=== PATIENT | female | born 1945 | race Caucasian/White ===

== ENCOUNTER 2016-12-04 12:30 | Emergency (ER) | payer OTHER ==
--- NOTE | ~2016-12-04 | CR72 ---
[facility] A Service of [facility] & [facility] RADIOLOGY TEXT RESULTS PATIENT: ZULY CREWS LOCATION: [facility] : 41 UNIT #: [id number] AGE: [address]: Dante Brock MD SEX: F ORDER DR: [id number] [facility] [address] [place], [place] [address] [id number] MR#: [id number] Acc #: [id number] NAME: ZULY CREWS : 1945 SEX: F STUDY DATE/TIME: 12/04/2016 13:28 UNIT: [facility] ROOM: STUDY DESCRIPTION: CR Chest Single View Portable Attending Physician: Dante Brock M.D. Ordering Physician: Dante Brock M.D. Primary Care Physician: Candace Keene M.D. MEDICAL IMAGING REPORT This report is preliminary unless electronic signature is present EXAM Portable chest INDICATIONS Shortness of breath today. No comparisons. FINDINGS Low-volume inspiration. There is consolidation or atelectasis in both lung bases. Heart size normal. Atherosclerotic calcification of the aorta. Degenerative changes of the shoulders. IMPRESSION Low-volume inspiration with atelectasis or consolidation in both lung bases. Dictated by... Shen Bucio M.D. THIS IS AN ELECTRONICALLY VERIFIED REPORT Shen Bucio M.D. at 12/05/2016 2:21 PM DAO/meek TD: 12/05/2016 02:55 JOB #: [id number] MEDICAL IMAGING REPORT Page 1 of 1 COPY
--- NOTE | ~2016-12-04 | EKG ---
PATIENT: ZULY CREWS UNIT #: [id number] Ventricular Rate: 65 BPM Atrial Rate: 65 BPM P-R Interval: 180 ms QRS Duration: 86 ms Q-T Interval: 414 ms QTC Calculation(Bezet): 430 ms P [place]: 36 degrees Calculated R [place]: -6 degrees Calculated T [place]: 20 degrees Diagnosis Line: Normal sinus rhythm Diagnosis Line: Normal ECG Diagnosis Line: No previous ECGs available Diagnosis Line: Confirmed by RAJEEV WATKINS MD ([id number]) on 12/05/2016 Diagnosis Line: 5:50:46 AM INTERPRETING MD: JUNE VILLARREAL
[2016-12-04 13:32] LABS: BASOPHIL# 0.1 X10e3 (0-0.3); BASOPHIL% 1.1 % (0-2.5); EOSINOPHIL# 0.2 X10e3 (0-0.7); EOSINOPHIL% 3.4 % (0.0-7.0); HEMATOCRIT 36.7 % (35.0-45.0); HEMOGLOBIN 11.7 gm/dL (12.0-16.0); LYMPHOCYTE% 19.7 % (17.0-45.0); MEAN CELL VOLUME 93.9 FL (83-96); MEAN CORPUSCULAR HEMOGLOBIN 29.9 PG (28-34); MEAN CORPUSCULAR HGB CONC 31.8 g/dL (30-36); MONOCYTE# 0.3 X10e3 (0-1.0); NEUTROPHIL# 3.3 X10e3 (1.5-7.1); NEUTROPHIL% 68.8 % (40-75); PLATELET COUNT 180 X10e3 (140-420); RED BLOOD COUNT 3.91 X10e (3.90-5.30); RED CELL DISTRIBUTION WIDTH 15.1 % (11.0-15.5); WHITE BLOOD COUNT 4.8 X10e3 (4.0-10.5)
[2016-12-04 13:36] LABS: DIFF IND NO
[2016-12-04 13:37] LABS: POC - CKMB <1.0 ng/mL (0.0-7.9); POC - TROPONIN <0.05 ng/mL (<=0.05)
[2016-12-04 13:56] LABS: ALBUMIN SERUM 3.8 g/dL (3.5-5.0); BILIRUBIN, DIRECT 0.1 mg/dL (0.0-0.2); BILIRUBIN,INDIRECT 0.5 mg/dL (0.0-0.9); BILIRUBIN,TOTAL 0.6 mg/dL (0.2-2.0); CALCIUM SERUM 9.5 mg/dL (8.4-10.2); CREATININE SERUM 0.6 mg/dL (0.6-1.4); GLOM FILT RATE Estimated 90.4 mL/min (>60); POTASSIUM 4.2 mmol/L (3.5-5.1); PROTEIN TOTAL SERUM 6.7 g/dL (6.0-8.3)
[2016-12-04 15:42] LABS: URINE SOURCE CLEAN CATCH
[2016-12-04 15:51] LABS: URINE APPEARANCE CLEAR; URINE BILIRUBIN NEG (NEG); URINE BLOOD NEG (NEG); URINE COLOR YELLOW; URINE GLUCOSE NEG (NEG); URINE KETONE NEG (NEG); URINE LEUKOCYTE ESTERASE NEG (NEG); URINE NITRATE NEG (NEG); URINE PROTEIN NEG (NEG); URINE SPECIFIC GRAVITY 1.019 (1.003-1.035)
[2016-12-04 15:54] LABS: CULTURE INDICATED? NO
[2017-03-02] MEDS ORDERED: ADVAIR 250-501 EACH INH (14:07)
[2017-03-02] MEDS ORDERED: LO-DOSE ASPIRIN81 M1 PO (14:08)
[2017-03-02] MEDS ORDERED: ALBUTEROL2.5 MG/3 M INH (14:08)
[2017-03-02] MEDS ORDERED: LIPITOR20 MG PO (14:08)
[2017-03-02] MEDS ORDERED: DILTIAZEM 24HR180 MG PO (14:09)
[2017-03-02] MEDS ORDERED: CLINDAMYCIN HC300 MG PO (14:09)
[2017-03-02] MEDS ORDERED: CLOTRIMAZOLE/BE15 G1 TOP (14:09)
[2017-03-02] MEDS ORDERED: ISOSORBIDE MONO30 MG PO (14:11)
[2017-03-02] MEDS ORDERED: SINGULAIR PO (14:11)
[2017-03-02] MEDS ORDERED: IPRATR-ALBUTEROL3 ML INH (14:11)
[2017-03-02] MEDS ORDERED: PRINIVIL40 MG PO (14:11)
[2017-03-02] MEDS ORDERED: DITROPAN5 MG PO (14:12)
[2017-03-02] MEDS ORDERED: SYMBICORT INH (14:27)
[2017-03-02] MEDS ORDERED: PANTOPRAZOLE SO40 MG PO (14:27)
[2017-03-02] MEDS ORDERED: ALBUTEROL17 GM INH (14:28)
[2017-03-02] MEDS ORDERED: VITAMIN C1000 M2 PO (14:29)
[2017-03-02] MEDS ORDERED: VITAMIN D250000 UNIT PO (14:29)
[2017-03-02] MEDS ORDERED: NOVOLIN 70100 UNITS/ (14:32)
== END 2016-12-04 17:05 | disposition home or self-care (01) ==
LOC: CED 12:30
PROVIDERS: Emergency Medicine
DX: J44.1 Chronic obstructive pulmonary disease with (acute) exacerbation (principal); E11.9 Type 2 diabetes mellitus without complications; I10 Essential (primary) hypertension; Z87.891 Personal history of nicotine dependence
CPT/HCPCS: 36415; 71010; 80048; 80076; 81003; 82553; 82947; 83880; 84484; 85025; 93005; 94640; 99283

== ENCOUNTER 2016-12-27 18:48 | Inpatient (IN) | payer OTHER ==
--- NOTE | ~2016-12-27 | HP ---
Unit #: [id number] #: [id number] Patient: ZULY CREWS [id number] [address] [place], [place] [address] [id number] I MR#: [id number] NAME: ZULY CREWS ROOM: 57 Age: 71 Sex: F Admission Date: 12/27/2016 : 1945 Attending Physician: Jose A Mensah M.D. Primary Care Physician: Candace Keene M.D. HISTORY AND PHYSICAL CHIEF COMPLAINT Shortness of breath, pain between shoulder blades and the breast. DISCUSSION This is a 71-year-old female with a history of oxygen dependent COPD, hypertension, overactive bladder, GERD, chronic back pain on pain pump, diabetes borderline, history of heart murmur. She presented to the emergency room with the chief complaint of having shortness of breath and between shoulder blades. She says she took mini-nebulizer today with no improvement. She came to the ER. She was found to be in COPD. Chest x-ray shows bilateral basal infiltrate versus atelectasis. She was eventually admitted. She denies chest pain. She has been having also nausea but no vomiting. No abdominal pain, no diarrhea, no constipation, no loss of consciousness, no headache. PAST MEDICAL HISTORY 1. History of COPD, oxygen at home. 2. History of hypertension. 3. Overactive bladder. 4. History of GERD. 5. Chronic back pain on pain pump. 6. Diabetes, borderline. 7. History of heart murmur. PAST SURGICAL HISTORY 1. History of bilateral tympanoplasty. 2. History of right wrist surgery. 3. Pain pump placement. 4. Cholecystectomy. 5. Hysterectomy. 6. Back surgery x3 in the past. SOCIAL HISTORY She used to smoke 1-2 packs daily since age 9. She quit just three months ago. Denies alcohol. Denies illicit drug use. MEDICATION FROM HOME 1. Symbicort 160/4.5 one puff daily. 2. Ventolin one puff twice a day p.r.n. 3. Prinivil 40 mg daily. 4. Singulair 10 mg daily. 5. Naprosyn 500 twice daily. 6. Zofran 4 mg q.8 hour p.r.n. 7. Ditropan 5 mg twice daily. Unit #: [id number] #: [id number] Patient: ZULY CREWS 8. Advair 250/50 one puff twice daily. 9. Albuterol via nebulizer q 6 hours p.r.n. 10. Amlodipine 10 mg daily. 11. Aspirin 81 mg daily. 12. Ipratropium 1 unit via nebulizer q.6 hours p.r.n. ALLERGIES She is allergic to penicillin, sulfa, codeine, tetracycline, Phenergan, glimepiride, latex. FAMILY HISTORY Noncontributory. REVIEW OF SYSTEMS Other review of systems negative except for history of presenting illness. PHYSICAL EXAMINATION GENERAL: Elderly female, lying in the bed comfortably, currently not in any distress. She is alert, awake, oriented x3, comfortable, not in any distress. VITAL SIGNS: Her current vitals are following: Temperature 98.2, heart rate 111, respiratory rate 22, blood pressure 147/52, oxygen 97%. HEENT: Pupils are equal, react to light and accommodation. Head is normocephalic, atraumatic. NECK: Supple. No JVD. HEART: S1, S2, regular rate and rhythm. 2/6 systolic murmur. LUNGS: Poor air entry bilaterally. ABDOMEN: Soft, nontender, nondistended, obese. No guarding. No rigidity. EXTREMITIES: To inspection normal. No cyanosis, no clubbing, no edema. NEUROLOGIC: No focal neurologic deficit. SKIN: Warm and dry, no rash. PSYCH: Normal mood and affect. DIAGNOSTIC STUDIES LABORATORY STUDIES: BNP 66. CBC - white count 6, hemoglobin 11, hematocrit 35, platelets 147, INR 1.1. Sodium 138, potassium 3.8, chloride 103, glucose 160, BUN 17, creatinine 0.9. LFT within normal limits. Troponin less than 0.05. IMAGING STUDIES: Chest x-ray shows bilateral basilar atelectasis versus infiltrate. CARDIOLOGY STUDIES: EKG shows sinus tachycardia. ASSESSMENT AND PLAN 1. Acute exacerbation of COPD, oxygen dependent at home. Will start the patient on IV steroids, DuoNeb, Mucinex, and continue Singulair. 2. Bilateral basilar infiltrate versus atelectasis, started IV Levaquin. 3. Hypertensin, currently controlled. Continue home medication of Norvasc and lisinopril. 4. Overactive bladder, continue Ditropan. 5. History of chronic nausea and Zofran. 6. GERD. For GI prophylaxis will place the patient on Protonix 40 p.o. daily. 7. Chronic back pain. She is on the pump. 8. History of diabetes. She says that she is on a diet. Place on diabetic diet. Placed on sliding scale while she is on steroids. Unit #: [id number] #: [id number] Patient: ZULY CREWS 9. DVT prophylaxis. Will place the patient on Lovenox. Dictated by Richy Hermosillo/danis TD: 12/28/2016 05:42 JOB #: [id number] HISTORY AND PHYSICAL Page 1 of 1 X X HISTORY AND PHYSICAL
--- NOTE | ~2016-12-27 | DS ---
Unit #: [id number] #: [id number] Patient: ZULY CREWS [id number] [place] [id number] [place] [id number] I MR#: [id number] NAME: ZULY CREWS ROOM: 577 Age: 71 Sex: F Admission Date: 12/27/2016 : 1945 Discharge Date: 01/01/2017 Attending Physician: Liam Mcclain M.D. Primary Care Physician: Candace Keene M.D. DISCHARGE SUMMARY DIAGNOSIS ON ADMISSION Acute exacerbation of chronic obstructive pulmonary disease, pneumonia. DIAGNOSES ON DISCHARGE 1. Acute exacerbation of chronic obstructive pulmonary disease, improved. 2. Pneumonia. 3. Chronic respiratory failure, patient on 4 L of home O2. 4. Dysphagia. 5. Distal esophageal stricture, status post dilatation. 6. Hypertension. 7. Overactive bladder. 8. Gastroesophageal reflux disease. 9. Chronic low back pain on pain pump. 10. Type 2 diabetes mellitus. 11. Erosive gastritis. CONSULTATION 1. Dr. Aguirre - Pulmonary. 2. Dr. Jose A Gifford - GI consultation. LABS AND PROCEDURES DONE The patient had an EGD done which revealed distal esophageal ring which was obstructing and it was dilated. The patient has classic Radames erosions with a large hiatal hernia present. The patient also has prepyloric antral corrosive gastritis. The patient had a bronchoscopy done which did not reveal any endobronchial lesions. There were thick mucoid secretions in both lungs which were therapeutically suctioned. The patient's creatinine is 0.7, sodium 138, potassium is 4.9. WBC 7.1, hemoglobin 11.0, platelet count is 182. ASSESSMENT AND PLAN 71-year-old patient presented to [facility] with shortness of air. Details are as per admission H and P. Acute exacerbation of chronic obstructive pulmonary disease: The patient was treated with IV Solu-Medrol. The patient responded well to treatment is feeling much better. Pneumonia: The patient was treated with IV antibiotics and is feeling Unit #: [id number] #: [id number] Patient: ZULY CREWS much better and wants to go home today. Dysphagia: The patient has complained of dysphagia and was seen by Dr. Jose A Gifford in consultation. The patient had an EGD done which revealed distal esophageal ring which was dilated. The patient is feeling much better. Today, patient is comfortable and wants to go home. DISCHARGE MEDICATIONS Medications on discharge: 1. Albuterol mini neb treatment q.6 hours p.r.n. 2. Ventolin inhaler, two puffs q.4 hours p.r.n. shortness of air. 3. Symbicort 160/4.5 two puffs daily. 4. Atrovent q.6 hours p.r.n. 5. Zofran 4 mg p.o. q.4 hours p.r.n. 6. Norvasc 10 mg p.o. daily. 7. Ditropan 5 mg p.o. b.i.d. 8. Lisinopril 40 mg p.o. daily. 9. Singulair 10 mg p.o. daily. 10. Enteric coated aspirin 81 mg p.o. daily. 11. Tylenol 650 mg p.o. q.4 hours p.r.n. pain. 12. Prednisone 20 mg, two p.o. daily into five days and then one p.o. daily into five days. 13. Levaquin 500 mg p.o. daily into five days. FOLLOWUP 1. Patient is advised to follow up with primary care physician in one week and have CBC and BMP done. 2. Patient is advised to follow up with Dr. Aguirre as recommended. 3. We will arrange home health regarding home safety assessment. 4. Patient advised to follow up with Dr. Jose A Gifford as recommended on March 03 at 10:30 a.m. and should be NPO after midnight for a repeat EGD and possible dilatation. Dictated by... Richy Carolina TD: 01/01/2017 10:46 JOB #: [id number] DISCHARGE SUMMARY Page 1 of 1 X Liam Mcclain MD DISCHARGE SUMMARY
--- NOTE | ~2016-12-27 | CT57 ---
[facility] A Service of [facility] & [facility] RADIOLOGY TEXT RESULTS PATIENT: ZULY CREWS LOCATION: [facility] 577-01 : 43 UNIT #: [id number] AGE: [address]: Liam Mcclain MD SEX: F ORDER DR: [id number] [facility] [address] [place], [place] [address] [id number] I MR#: [id number] Acc #: [id number] NAME: ZULY CREWS : 1945 SEX: F STUDY DATE/TIME: 12/29/2016 14:42 UNIT: [facility] ROOM: [facility] STUDY DESCRIPTION: CT Chest Wo Cont Attending Physician: Liam Mcclain M.D. Ordering Physician: Jes Aguirre M.D. Primary Care Physician: Candace Keene M.D. MEDICAL IMAGING REPORT This report is preliminary unless electronic signature is present EXAM CT chest without contrast. HISTORY Shortness of air for 2 years. Cough today. TECHNIQUE This CT exam was performed with one or more of the following radiation dose reduction techniques: automatic exposure control, adjustment of mA and/or kV according to patient size, and iterative reconstruction. FINDINGS CT chest without contrast demonstrates an 8-mm rounded nodular density, partly containing air, in the proximal right lower lobe bronchus, immediately beyond the bifurcation of the right mainstem bronchus. This appears to be adherent to the bronchial wall. This could be mucus versus neoplasm. Consider either bronchoscopic correlation or short-term followup CT. Moderately dense atelectasis in the posterior and inferior lower lobes bilaterally, greater on the right. There is also mild atelectasis in the right middle lobe and minimal atelectasis in the posterior lingula. Large hiatal hernia. No adenopathy. Normal caliber thoracic aorta. Tortuous distal descending thoracic aorta. Cholecystectomy. Partly visualized infrarenal abdominal aortic Wallstent. IMPRESSION 1. 8-mm mixed density nodular structure in the proximal right lower lobe bronchus immediately beyond the right mainstem bronchus bifurcation. This could be adherent mucus, as it contains a small amount of air. Neoplasm is not excluded, but considered less likely. Consider either bronchoscopy or short-term followup CT. 2. Moderately dense atelectasis in the posterior and inferior right lower STS. [facility] A Service of [facility] RADIOLOGY TEXT RESULTS PATIENT: ZULY CREWS LOCATION: [facility] 577-01 : [birth year] UNIT #: [id number] AGE: [address]: Liam Mcclain MD SEX: F ORDER DR: lobe and less extensive atelectasis in the posterior and inferior left lower lobe. 3. Large hiatal hernia. Dictated by... Pelon Wilde M.D. THIS IS AN ELECTRONICALLY VERIFIED REPORT Pelon Wilde M.D. at 12/29/2016 10:53 PM José Miguel TD: 12/29/2016 18:18 JOB #: [id number] MEDICAL IMAGING REPORT Page 1 of 1 COPY
--- NOTE | ~2016-12-27 | EKG ---
PATIENT: ZULY CREWS UNIT #: [id number] Ventricular Rate: 103 BPM Atrial Rate: 103 BPM P-R Interval: 152 ms QRS Duration: 82 ms Q-T Interval: 342 ms QTC Calculation(Bezet): 448 ms P [place]: 32 degrees Calculated R [place]: -17 degrees Calculated T [place]: 20 degrees Diagnosis Line: Sinus tachycardia Diagnosis Line: Poor R wave progression questionable lead position Diagnosis Line: or body habitus Diagnosis Line: Borderline ECG Diagnosis Line: When compared with ECG of 04-DEC-2016 13:40, Diagnosis Line: Vent. rate has increased BY 38 BPM Diagnosis Line: Confirmed by AMEENA NOEL MD ([id number]) on Diagnosis Line: 12/27/2016 10:25:36 PM INTERPRETING MD: JACKIE
--- NOTE | ~2016-12-27 | OR ---
Unit #: [id number] #: [id number] Patient: ZULY CREWS [id number] [address] [place], [place] [address] [id number] I MR#: [id number] NAME: ZULY CREWS ROOM: 57 Date of Procedure: 12/28/2016 Admission Date: 12/27/2016 Surgeon: JoseA Gifford M.D. : 1945 Attending Physician: Liam Mcclain M.D. Primary Care Physician: Candace Keene M.D. OPERATIVE REPORT ADDITIONAL ATTENDING PHYSICIAN Dr. Jose A Mensah. PREOPERATIVE DIAGNOSIS Dysphagia. PROCEDURES PERFORMED Upper gastrointestinal endoscopy and a dilation as well as upper gastrointestinal endoscopy and a biopsy. POSTOPERATIVE DIAGNOSES 1. The patient had distal esophageal ring, which was felt to be obstructing. It was dilated using an 18 to 20 mm TTS balloon. 2. Large hiatus hernia. 3. Classic Radames erosions. These are linear erosions within the hiatal hernia sac that can occasionally cause iron-deficiency anemia. 4. Prepyloric antral erosive gastritis. There were multiple erosions in the antral area. A biopsy was obtained from the antrum for CLOtest. 5. Rest of the examination up to third part of duodenum was normal. RECOMMENDATIONS The patient will be started on diet as tolerated and start on pantoprazole 40 mg p.o. q.a.m. SEDATION MAC. DESCRIPTION OF PROCEDURE Following detailed explanation of the potential risks and complications of an upper endoscopy, namely perforation, bleeding, and complication related to sedation, the patient was brought to GI lab and laid in the left lateral decubitus position. Lubricated tip of the Olympus video upper endoscope was passed through the bite block into the proximal esophagus under direct vision. The entire esophageal mucosa was examined. The patient was noted to have distal esophageal mucosal ring, which was felt to be obstructing. There being no esophagitis. In addition, a large hiatus hernia was noted. The scope was advanced into the gastric cavity. The patient also had classic Radames erosions. These are linear erosions within the hiatal hernia sac that can cause iron-deficiency anemia. The mucosa of the fundus, body, and antrum was examined. The patient was noted to have prepyloric antral erythema erosions indicating antral Unit #: [id number] #: [id number] Patient: DUPIN,ZULY gastritis. Pylorus was intubated with visualization of normal duodenal bulb and second and third part of duodenum. Upon withdrawal and retroflexion, incisura, cardia, and greater curve was examined and no additional findings were noted. The scope was then withdrawn in the distal esophagus. No additional findings were noted. Biopsies were obtained from the antrum for CLOtest. The scope was then withdrawn in the distal esophagus. An 18 to 20 mm TTS balloon was passed through the accessory channel of the scope and step-up dilation of the distal esophagus was done. Minimal bleeding was noted. The area was thoroughly washed with water. Good hemostasis was achieved. The scope was then withdrawn all the way up to pharynx. No additional findings were noted. The patient tolerated the procedure without any postprocedure complications. Dictated by... Richy Uriarte TD: 12/29/2016 16:03 JOB #: [id number] OPERATIVE REPORT Page 1 of 1 X Jose A Gifford MD X PROCEDURE OPERATIVE NOTE
--- NOTE | ~2016-12-27 | CR72 ---
[facility] A Service of [facility] & [facility] RADIOLOGY TEXT RESULTS PATIENT: ZULY CREWS LOCATION: [facility] 577-01 : 41 UNIT #: [id number] AGE: [address]: Liam Mcclian MD SEX: F ORDER DR: [id number] [facility] [address] [place] [address] [place], [place] [address] [id number] I MR#: [id number] Acc #: [id number] NAME: ZULY CREWS : 1945 SEX: F STUDY DATE/TIME: 12/27/2016 19:24 UNIT: [facility] ROOM: [facility] STUDY DESCRIPTION: CR Chest Single View Portable Attending Physician: Jose A Mensah M.D. Ordering Physician: Adrienne Toure M.D. Primary Care Physician: Candace Keene M.D. MEDICAL IMAGING REPORT This report is preliminary unless electronic signature is present EXAM Portable chest. HISTORY Shortness of air and chest pain for 1 month. FINDINGS Moderate bibasilar infiltrates or atelectasis have increased since 12/04/16. Low lung volumes. Cardiac and mediastinal contours are within normal limits. Moderate sized hiatal hernia. The mid and upper lungs are clear. Dictated by... Pelon Wilde M.D. THIS IS AN ELECTRONICALLY VERIFIED REPORT Pelon Wilde M.D. at 12/28/2016 5:27 PM JIM/carrie TD: 12/28/2016 00:19 JOB #: [id number] MEDICAL IMAGING REPORT Page 1 of 1 COPY
--- NOTE | ~2016-12-27 | CO ---
Unit #: [id number] #: [id number] Patient: ZULY CREWS [id number] [address] [address] [id number] I MR#: [id number] NAME: ZULY CREWS ROOM: [facility] Age: 71 Sex: F Admission Date: 12/27/2016 : 1945 Attending Physician: Liam Mcclain M.D. Primary Care Physician: Candace Keene M.D. CONSULTATION REPORT CHIEF COMPLAINT Shortness of breath and chest pain. HISTORY OF PRESENT ILLNESS A 71-year-old female with past medical history of COPD on oxygen, came in with a complaint of worse shortness of breath, increasing sputum production for last two to three days. Symptoms getting worse. Chest x-ray showed bilateral basal infiltrates. I am seeing her at the bedside. Denies any nausea, vomiting, diarrhea. PAST MEDICAL HISTORY 1. COPD. 2. Hypertension. 3. Overactive bladder. 4. Gastroesophageal reflux disease. 5. Heart murmur. PAST SURGICAL HISTORY 1. Wrist surgery. 2. Hysterectomy. 3. Cholecystectomy. SOCIAL HISTORY One to two packs smoker per day, quit three months ago. MEDICATIONS 1. Symbicort. 2. Ventolin. 3. Prinivil. 4. Singulair. 5. Naproxen. 6. Zofran. 7. Ditropan. 8. Advair. 9. Albuterol. 10. Amlodipine. 11. Aspirin. 12. Ipratropium. ALLERGIES Penicillin, sulfa, codeine, tetracycline, Phenergan, glimepiride, latex. PHYSICAL EXAMINATION VITAL SIGNS: Temperature 98, pulse 87, respirations 12, blood pressure Unit #: [id number] #: [id number] Patient: ZULY CREWS 147/52. NEUROLOGIC: Awake, alert, oriented. No neuro deficit. HEENT: PERRLA plus 1. NECK: Supple. No JVD. CHEST: Bilateral air entry. Bilateral mild rhonchi. GASTROINTESTINAL: Nontender, soft. Bowel sounds positive. EXTREMITIES: No edema. DIAGNOSTIC STUDIES Labs and imaging have been reviewed. ASSESSMENT 1. Acute exacerbation of chronic obstructive pulmonary disease, bilateral basilar infiltrates, rule out pneumonia. 2. Hypertension. 3. Overactive bladder. PLAN Plan is to admit the patient. Continue oxygen, bronchodilator, IV steroids, IV antibiotics. Noncontrast CT of the chest and will order procalcitonin level. Please see orders for detailed plan. Thank you very much for this consultation. Dictated by... Richy Cha TD: 12/29/2016 12:01 JOB #: [id number] CONSULTATION REPORT Page 1 of 1 X Jes Aguirre MD X CONSULTATION REPORT
--- NOTE | ~2016-12-27 | CO ---
Unit #: [id number] #: [id number] Patient: ZULY CREWS [id number] [address] [address] [id number] I MR#: [id number] NAME: ZULY CREWS ROOM: 57 Age: 71 Sex: F Admission Date: 12/27/2016 : 1945 Attending Physician: Liam Mcclain M.D. Primary Care Physician: Candace Keene M.D. Consultation Date: 12/28/2016 CONSULTATION REPORT REASON FOR CONSULTATION Dysphagia. HISTORY OF PRESENT ILLNESS Ms. Crews is a very pleasant 71-year-old white female who has been admitted because of increasing shortness of breath and pain in the intrascapular area, mammary area. The patient mentioned having had recent onset of dysphagia to solids for the past six to eight weeks. There have been episodes of bolus meat or food impaction. She has been carefully trying to cut her food into smaller pieces in order to be able to eat without choking. She does not have any history of retrosternal ascending heartburn or postprandial dyspepsia. There is no history of overt GI bleed in the form of hematemesis, melena or hematochezia. She does have a longstanding history of chronic obstructive pulmonary disease and pain pump for chronic back pain. PAST MEDICAL HISTORY 1. History of chronic obstructive pulmonary disease with home oxygen. 2. History of hypertension. 3. Gastroesophageal reflux disease. 4. Diabetes which is borderline. 5. Chronic back pain with pain pump. 6. Overactive bladder. PAST SURGICAL HISTORY 1. Cholecystectomy. 2. Hysterectomy. 3. Back surgery times three. 4. Placement of pain pump. 5. History of right wrist surgery. 6. Bilateral tympanoplasty. SOCIAL HISTORY The patient used to smoke a half pack of cigarettes daily since age 9. She quit about three months ago. She does not drink alcohol and does not use any illicit drugs. FAMILY HISTORY None of colon or pancreatic cancer or liver disease. ALLERGIES Sulfonamides, penicillin, codeine, tetracycline, Phenergan, latex, glimepiride. Unit #: [id number] #: [id number] Patient: ZULY CREWS HOME MEDICATIONS 1. Ditropan. 2. Zofran. 3. Advair. 4. Albuterol. 5. Amlodipine. 6. Aspirin. 7. Ipratropium. 8. Naproxen. 9. Zofran. 10. Singulair. 11. Prinivil. 12. Ventolin. 13. Symbicort. REVIEW OF SYSTEMS Detailed review of organ systems does not reveal any recent weight loss. No history of fever, chills or rigors. No headache, seizure or syncope. No history of cough, expectoration or hemoptysis. No history of dysuria, hematuria or pyuria. No history of focal seizures or extremity weakness. The rest of the review of organ systems is unremarkable. PHYSICAL EXAMINATION GENERAL: She is alert and oriented and cheerful. VITALS: Stable with a temperature of 98.3, pulse 83 per minute, respiratory rate 18, blood pressure 108/47. She weighs 156 pounds, which his close to her baseline weight. HEENT: She has mild pallor, no icterus, lymphadenopathy or peripheral edema. LUNGS: The lungs read normal breath sounds with diminished air entry. HEART: Normal heart sounds. No murmurs to auscultation. ABDOMEN: Liver and spleen are not palpable. Soft and nontender. Bowel sounds normal. DIAGNOSTIC STUDIES LABORATORY: White blood cell count 6.8, hemoglobin 11.3 which is close to baseline, and platelet count is 147. INR 1.1. Serum chemistry shows a BUN and creatinine of 24 and 1.0 and potassium is 3.6. LFTs are normal. ASSESSMENT/PLAN The most likely etiology of the patient's presentation of dysphagia is the presence of esophageal stricture. Since there is a recent history, malignant stricture also needs to be entertained. An upper endoscopy and possible dilation is indicated. The patient does have significant chronic obstructive pulmonary disease, making any procedure a high risk procedure. The pros and cons of the endoscopy, including possibly perforation, bleeding complications, and sedation were discussed with the patient. She was reassured. Endoscopy will be done later today. Thank you very much for asking me to see this pleasant woman in GI consultation. Dictated by.Richy Gil Unit #: [id number] #: [id number] Patient: ZULY CREWS TD: 12/29/2016 10:37 JOB #: [id number] CC: Richy Barron M.D. CONSULTATION REPORT Page 1 of 1 X Jose A Gifford MD CONSULTATION REPORT
--- NOTE | ~2016-12-27 | OR ---
Unit #: [id number] #: [id number] Patient: ZULY CREWS [id number] [address] [address] [id number] I MR#: [id number] NAME: ZULY CREWS ROOM: [facility] Date of Procedure: 12/31/2016 Admission Date: 12/27/2016 Surgeon: Jes Aguirre M.D. : 1945 Attending Physician: Liam Mcclain M.D. Primary Care Physician: Candace Keene M.D. PROCEDURE OPERATIVE NOTE PROCEDURE Diagnostic bronchoscopy. INDICATION Abnormal CT chest. PREPROCEDURE DIAGNOSIS Abnormal CT chest. POSTPROCEDURE DIAGNOSIS Pneumonia. DETAILS OF PROCEDURE After taking consent from the patient, explaining the risks and benefits, the patient was placed in the appropriate position. Bronchoscope introduced through the oral cavity. Vocal cords appeared to be symmetrically moving toward the midline. Trachea was normal. Mariam was sharp. We examined the right upper, right middle, right lower lobe, left upper lobe, lingula and left lower lobe. No endobronchial lesions were found. There were thick mucoid secretions in both lungs which were therapeutically suctioned. Then we did a bronchioalveolar lavage in the right lower lobe area with 100 mL saline in and 20 mL back. The patient tolerated the procedure very well. No complications happened. Dictated by... Richy Cha/chau TD: 12/31/2016 16:23 JOB #: [id number] Unit #: [id number] #: [id number] Patient: ZULY CREWS PROCEDURE OPERATIVE NOTE Page 1 of 1 X Jes Aguirre MD X PROCEDURE OPERATIVE NOTE
[2016-12-27 19:20] LABS: BASOPHIL% 0.5 % (0-2.5); EOSINOPHIL# 0.1 X10e3 (0-0.7); EOSINOPHIL% 1.1 % (0.0-7.0); HEMATOCRIT 35.5 % (35.0-45.0); HEMOGLOBIN 11.3 gm/dL (12.0-16.0); LYMPHOCYTE# 0.5 X10e3 (1.0-3.5); LYMPHOCYTE% 7.8 % (17.0-45.0); MEAN CORPUSCULAR HEMOGLOBIN 30.1 PG (28-34); MEAN PLATELET VOLUME 8.4 FL (6.5-11.5); MONOCYTE# 0.1 X10e3 (0-1.0); MONOCYTE% 1.6 % (3.0-12.0); NEUTROPHIL# 5.9 X10e3 (1.5-7.1); PLATELET COUNT 147 X10e3 (140-420); RED BLOOD COUNT 3.77 X10e (3.90-5.30); RED CELL DISTRIBUTION WIDTH 15.1 % (11.0-15.5); WHITE BLOOD COUNT 6.6 X10e3 (4.0-10.5)
[2016-12-27 19:21] LABS: DIFF IND NO
[2016-12-27 19:33] LABS: INR 1.1; PROTHROMBIN TIME (PATIENT) 11.2 SECONDS (9.6-11.5)
[2016-12-27 19:43] LABS: ALBUMIN SERUM 3.8 g/dL (3.5-5.0); BILIRUBIN, DIRECT 0.2 mg/dL (0.0-0.2); BILIRUBIN,INDIRECT 1.2 mg/dL (0.0-0.9); BILIRUBIN,TOTAL 1.4 mg/dL (0.2-2.0); BUN/CREATININE RATIO 18.88; CALCIUM SERUM 9.1 mg/dL (8.4-10.2); CREATININE SERUM 0.9 mg/dL (0.6-1.4); GLOM FILT RATE Estimated 63.5 mL/min (>60); POTASSIUM 3.8 mmol/L (3.5-5.1); PROTEIN TOTAL SERUM 6.4 g/dL (6.0-8.3)
[2016-12-27 19:49] LABS: POC - CKMB <1.0 ng/mL (0.0-7.9); POC - TROPONIN <0.05 ng/mL (<=0.05)
[2016-12-27] MEDS ORDERED: ALBUTEROL2.5 MG/3 M INH (20:19)
[2016-12-27] MEDS ORDERED: ADVAIR 250-501 EACH INH (20:19)
[2016-12-27] MEDS ORDERED: AMLODIPINE BESY10 MG PO (20:19)
[2016-12-27] MEDS ORDERED: IPRATROPIU0.2 MG/1 M INH (20:20)
[2016-12-27] MEDS ORDERED: PRINIVIL40 MG PO (20:20)
[2016-12-27] MEDS ORDERED: ASPIRIN EC81 M1 PO (20:20)
[2016-12-27] MEDS ORDERED: ZOFRAN PO (20:21)
[2016-12-27] MEDS ORDERED: SINGULAIR PO (20:21)
[2016-12-27] MEDS ORDERED: NAPROSYN500 MG PO (20:21)
[2016-12-27] MEDS ORDERED: ALBUTEROL17 GM INH (20:22)
[2016-12-27] MEDS ORDERED: SYMBICORT INH (20:22)
[2016-12-27] MEDS ORDERED: DITROPAN PO (20:22)
[2016-12-27 21:10] LABS: POC - CKMB <1.0 ng/mL (0.0-7.9); POC - TROPONIN <0.05 ng/mL (<=0.05)
[2016-12-28 05:53] LABS: CALCIUM SERUM 8.6 mg/dL (8.4-10.2); GLOM FILT RATE Estimated 55.9 mL/min (>60); POTASSIUM 3.6 mmol/L (3.5-5.1)
[2016-12-29 08:05] LABS: HEMATOCRIT 34.5 % (35.0-45.0); MEAN CELL VOLUME 93.8 FL (83-96); MEAN CORPUSCULAR HEMOGLOBIN 29.9 PG (28-34); MEAN CORPUSCULAR HGB CONC 31.9 g/dL (30-36); MEAN PLATELET VOLUME 9.3 FL (6.5-11.5); RED BLOOD COUNT 3.68 X10e (3.90-5.30); RED CELL DISTRIBUTION WIDTH 15.1 % (11.0-15.5)
[2016-12-29 08:16] LABS: WHITE BLOOD COUNT 12.8 X10e3 (4.0-10.5)
[2016-12-29 08:40] LABS: CALCIUM SERUM 9.1 mg/dL (8.4-10.2); CREATININE SERUM 0.6 mg/dL (0.6-1.4); GLOM FILT RATE Estimated 90.4 mL/min (>60); POTASSIUM 3.9 mmol/L (3.5-5.1)
[2016-12-30 05:32] LABS: HEMATOCRIT 33.5 % (35.0-45.0); HEMOGLOBIN 10.8 gm/dL (12.0-16.0); MEAN CELL VOLUME 94.3 FL (83-96); MEAN CORPUSCULAR HEMOGLOBIN 30.3 PG (28-34); MEAN CORPUSCULAR HGB CONC 32.1 g/dL (30-36); MEAN PLATELET VOLUME 9.8 FL (6.5-11.5); RED BLOOD COUNT 3.56 X10e (3.90-5.30); RED CELL DISTRIBUTION WIDTH 15.2 % (11.0-15.5); WHITE BLOOD COUNT 10.5 X10e3 (4.0-10.5)
[2016-12-30 05:56] LABS: ALBUMIN SERUM 3.2 g/dL (3.5-5.0); BILIRUBIN,TOTAL 0.6 mg/dL (0.2-2.0); BUN/CREATININE RATIO 33.75; CALCIUM SERUM 9.1 mg/dL (8.4-10.2); CREATININE SERUM 0.8 mg/dL (0.6-1.4); GLOM FILT RATE Estimated 73.2 mL/min (>60)
[2016-12-31 15:50] LABS: BODY FLUID APPEARANCE CLEAR; BODY FLUID SOURCE BRONCHIAL LAVAGE
[2017-01-01 06:18] LABS: HEMATOCRIT 34.5 % (35.0-45.0); MEAN CELL VOLUME 94.3 FL (83-96); MEAN CORPUSCULAR HEMOGLOBIN 30.1 PG (28-34); MEAN CORPUSCULAR HGB CONC 31.9 g/dL (30-36); MEAN PLATELET VOLUME 9.3 FL (6.5-11.5); RED BLOOD COUNT 3.66 X10e (3.90-5.30); RED CELL DISTRIBUTION WIDTH 14.9 % (11.0-15.5); WHITE BLOOD COUNT 7.1 X10e3 (4.0-10.5)
[2017-01-01 07:11] LABS: BUN/CREATININE RATIO 41.42; CALCIUM SERUM 9.7 mg/dL (8.4-10.2); CREATININE SERUM 0.7 mg/dL (0.6-1.4); POTASSIUM 4.9 mmol/L (3.5-5.1)
[2017-01-01] MEDS ORDERED: LEVAQUIN PO (15:12)
[2017-01-01] MEDS ORDERED: DELTASONE20 MG PO (15:13)
[2017-03-02] MEDS ORDERED: ADVAIR 250-501 EACH INH (14:07)
[2017-03-02] MEDS ORDERED: ALBUTEROL2.5 MG/3 M INH (14:08)
[2017-03-02] MEDS ORDERED: LO-DOSE ASPIRIN81 M1 PO (14:08)
[2017-03-02] MEDS ORDERED: LIPITOR20 MG PO (14:08)
[2017-03-02] MEDS ORDERED: CLOTRIMAZOLE/BE15 G1 TOP (14:09)
[2017-03-02] MEDS ORDERED: CLINDAMYCIN HC300 MG PO (14:09)
[2017-03-02] MEDS ORDERED: DILTIAZEM 24HR180 MG PO (14:09)
[2017-03-02] MEDS ORDERED: SINGULAIR PO (14:11)
[2017-03-02] MEDS ORDERED: IPRATR-ALBUTEROL3 ML INH (14:11)
[2017-03-02] MEDS ORDERED: PRINIVIL40 MG PO (14:11)
[2017-03-02] MEDS ORDERED: ISOSORBIDE MONO30 MG PO (14:11)
[2017-03-02] MEDS ORDERED: DITROPAN5 MG PO (14:12)
[2017-03-02] MEDS ORDERED: PANTOPRAZOLE SO40 MG PO (14:27)
[2017-03-02] MEDS ORDERED: SYMBICORT INH (14:27)
[2017-03-02] MEDS ORDERED: ALBUTEROL17 GM INH (14:28)
[2017-03-02] MEDS ORDERED: VITAMIN D250000 UNIT PO (14:29)
[2017-03-02] MEDS ORDERED: VITAMIN C1000 M2 PO (14:29)
[2017-03-02] MEDS ORDERED: NOVOLIN 70100 UNITS/ (14:32)
== END 2017-01-01 18:00 | disposition home health service (06) | DRG 166 ==
LOC: CED 18:48 → CEDOF 20:42 → C5C 20:42 → CEDOF 20:47 → CED 20:47 → CEDOF 23:25 → C5C 23:25
PROVIDERS: Emergency Medicine; Internal Medicine
PROC: 0B9F8ZX Drainage of Right Lower Lung Lobe, Via Natural or Artificial Opening Endoscopic, Diagnostic (ICD-10-PCS; principal; 2016-12-27)
PROC: 0B9M8ZZ Drainage of Bilateral Lungs, Via Natural or Artificial Opening Endoscopic (ICD-10-PCS; 2016-12-27)
PROC: 0D738ZZ Dilation of Lower Esophagus, Via Natural or Artificial Opening Endoscopic (ICD-10-PCS; 2016-12-29)
PROC: 0DB78ZX Excision of Stomach, Pylorus, Via Natural or Artificial Opening Endoscopic, Diagnostic (ICD-10-PCS; 2016-12-29)
DX: J44.0 Chronic obstructive pulmonary disease with (acute) lower respiratory infection (principal); J18.9 Pneumonia, unspecified organism; J96.10 Chronic respiratory failure, unspecified whether with hypoxia or hypercapnia; Z99.81 Dependence on supplemental oxygen; E11.9 Type 2 diabetes mellitus without complications; J44.1 Chronic obstructive pulmonary disease with (acute) exacerbation; I10 Essential (primary) hypertension; Z90.49 Acquired absence of other specified parts of digestive tract; Z90.710 Acquired absence of both cervix and uterus; Z98.49 Cataract extraction status, unspecified eye; Z96.652 Presence of left artificial knee joint; R13.10 Dysphagia, unspecified; K22.2 Esophageal obstruction; N32.81 Overactive bladder; K21.9 Gastro-esophageal reflux disease without esophagitis; M54.5 Low back pain; K29.00 Acute gastritis without bleeding; K44.9 Diaphragmatic hernia without obstruction or gangrene; Z87.891 Personal history of nicotine dependence; Z88.0 Allergy status to penicillin; Z88.2 Allergy status to sulfonamides; Z88.8 Allergy status to other drugs, medicaments and biological substances; Z91.040 Latex allergy status
CPT/HCPCS: 36415; 71010; 71250; 80048; 80053; 80076; 82308; 82553; 82947; 83880; 84484; 85025; 85027; 85610; 87070; 87077; 87102; 87106; 87116; 87186; 87205; 87206; 87252; 87254; 87278; 88108; 88305; 88312; 89051; 93005; 94640; 94664; 94760; 96374; 99285; J0171; J1650; J1815; J1956; J2920; J2930